=== PATIENT | male | born 1965 | race Caucasian/White ===

== ENCOUNTER 2021-12-03 11:14 | Inpatient (IN) | payer OTHER, MEDICAID, SELFPAY ==
[2021-12-03] VITALS (8 sets, daily range): BP systolic 126–158
[~2021-12-03] VITALS: Ht 177.8 cm; Wt 108.9 kg
[2021-12-03] MEDS ORDERED: IOHEXOL 350 mgI/mL, 150 ML INFUS..BTL IV ONE (11:28)
[2021-12-03 11:52] LABS: BASOPHILS % (AUTO) 0.2 % (0.0-2.0); HEMATOCRIT 40.6 % (36-54); HEMOGLOBIN 13.1 g/dL (14.0-18.0); LYMPHOCYTES # (AUTO) 0.4 K/uL (1.0-5.5); LYMPHOCYTES % (AUTO) 3.9 % (20.5-51.5); MEAN CORPUSCULAR HEMOGLOBIN 30 pg (27-31); MEAN CORPUSCULAR HGB CONC 32 % (32-36); MEAN CORPUSCULAR VOLUME 93 fL (79.0-98.0); MONOCYTES # (AUTO) 0.7 K/uL (0.0-1.0); MONOCYTES % (AUTO) 6.8 % (1.7-9.3); NEUTROPHILS # (AUTO) 9.5 K/uL (1.8-7.7); NEUTROPHILS % (AUTO) 89.1 % (40.0-70.0); PLATELET COUNT (AUTO) 108 K/uL (130-430); RED BLOOD CELL COUNT(AUTO) 4.37 MIL/uL (4.2-6.2); RED CELL DISTRIBUTION WIDTH 14.5 % (9.0-15.0); WHITE BLOOD COUNT (AUTO) 10.7 K/uL (4.8-10.8)
[2021-12-03 12:02] LABS: CALCIUM 8.4 mg/dL (8.4-11.0); CREATININE 1.19 mg/dL (0.55-1.30); POTASSIUM 4.2 mmol/L (3.5-5.1)
[2021-12-03 12:05] LABS: PROTHROMBIN TIME 10.9 SECS (9.5-12.5)
[2021-12-03 12:12] LABS: ALBUMIN 2.7 g/dL (3.4-4.8); TOTAL BILIRUBIN 0.2 mg/dL (0.0-1.0)
[2021-12-03] MEDS ORDERED: PIPERACILLIN/TAZO 3.375 GM in NS 50 ML IV ONE (13:00)
[2021-12-03] MEDS ORDERED: PIPERACILLIN/TAZOBACTAM 3.375 GM/VIAL (ZOSYN) IV ONE (13:25)
[2021-12-03] MEDS ORDERED: NACL 0.9% 1,000 ML IV ONE (13:30)
[2021-12-03 14:46] LABS: BILIRUBIN,URINE NEGATIVE (NEGATIVE); BLOOD, URINE 2+ (NEGATIVE); CLARITY/URINE SL CLOUDY (CLEAR); COLOR,URINE YELLOW (YELLOW); GLUCOSE,URINE NEGATIVE (NEGATIVE); KETONES,URINE TRACE (NEGATIVE); LEUKOCYTE ESTERASE ,URINE 1+ (NEGATIVE); NITRITE, URINE NEGATIVE (NEGATIVE); PROTEIN URINE 2+ (NEGATIVE); UROBILINOGEN,URINE 0.2 (0.2-1.0)
[2021-12-03] MEDS: ASPIRIN 81 MG TAB.CHEW PO SCH (14:51)
[2021-12-03] MEDS ORDERED: MUPIROCIN 2% TOPICAL OINTMENT 22 GM NS PRN (15:00)
[2021-12-03] MEDS ORDERED: MAGNESIUM SULFATE 50 ML IV PRN (15:00)
[2021-12-03] MEDS ORDERED: NACL 0.9% 1,000 ML IV SCH (15:00)
[2021-12-03] MEDS ORDERED: LORazepam 2 MG/ML VIAL IVP PRN (15:00)
[2021-12-03] MEDS ORDERED: POTASSIUM CHLORIDE 20 MEQ TAB.PRT.SR PO PRN (15:00)
[2021-12-03] MEDS ORDERED: NALOXONE HCL 0.4 MG/ML AMP (NARCAN) IVP PRN ×2 (15:00)
[2021-12-03] MEDS ORDERED: MORPHINE 2 MG/ML INJ. SYRINGE IVP PRN ×2 (15:00)
[2021-12-03] MEDS ORDERED: ONDANSETRON HCL 4 MG/2 ML VIAL IVP PRN (15:00)
[2021-12-03] MEDS ORDERED: DOCUSATE SODIUM 100 MG CAPSULE PO PRN (15:00)
[2021-12-03] MEDS ORDERED: ACETAMINOPHEN 325 MG TABLET PO PRN (15:00)
[2021-12-03] MEDS ORDERED: IPRATROPIUM/ALBUTEROL SULFATE 3 ML AMPUL.NEB (DUONEB) INH PRN ×2 (15:00→19:45)
[2021-12-03 15:16] LABS: BACTERIA,URINE FEW /HPF (None Seen); WBC,URINE 20-50 /HPF (0-3)
[2021-12-03 15:17] LABS: MUCUS,URINE 1+ /LPF (None Seen)
[2021-12-03 15:25] LABS: BARBITURATE, URINE NEGATIVE (NEG <=200); BENZODIAZEPINE, URINE NEGATIVE (NEG <=150); CANNABINOID, URINE NEGATIVE (NEG <=50); COCAINE, URINE NEGATIVE (NEG <=150); METHAMPHETAMINES SCREEN,URINE NEGATIVE (NEG <=500); OPIATE, URINE NEGATIVE (NEG <=100); PHENCYCLIDINE SCREEN,URINE NEGATIVE (NEG <=25); UR TRICYCLIC ANTIDEPRESSANTS POSITIVE (NEG <=300); URINE AMPHETAMINE NEGATIVE (NEG <=500); URINE METHADONE NEGATIVE (NEG <=200); URINE OXYCODONE SCREEN NEGATIVE (NEG <=100); URINE PROPOXYPHENE SCREEN NEGATIVE (NEG <=300)
[2021-12-03] MEDS ORDERED: MELA5TAB3 SL (16:29)
[2021-12-03] MEDS ORDERED: SODIUM CHLORIDE PO (16:29)
[2021-12-03] MEDS ORDERED: PRO40 PO (16:29)
[2021-12-03] MEDS ORDERED: DIA250 PO (16:29)
[2021-12-03] MEDS ORDERED: DOCU-144 PO (16:29)
[2021-12-03] MEDS ORDERED: POLY17PO4 PO (16:29)
[2021-12-03] MEDS ORDERED: INSU100V7 SUBCUT (16:29)
[2021-12-03] MEDS ORDERED: PRAV10TA PO (16:29)
[2021-12-03] MEDS ORDERED: AMOX-426 PO (16:29)
[2021-12-03] MEDS ORDERED: NEU300 PO (16:29)
[2021-12-03] MEDS ORDERED: SER100 PO (16:29)
[2021-12-03] MEDS ORDERED: BENZ1TAB76 PO (16:29)
[2021-12-03] MEDS ORDERED: LORA-259 PO (16:29)
[2021-12-03] MEDS ORDERED: DIVA250T2 PO (16:29)
[2021-12-03] MEDS ORDERED: FINA5TAB3 PO (16:29)
[2021-12-03] MEDS: D5NS 500 ML IV SCH (17:56)
[2021-12-03 18:00] LABS: CHOLESTEROL 121 mg/dL (<200); HDL CHOLESTEROL 21 mg/dL (>45); LDL CHOLESTEROL 60 mg/dL (<100); TRIGLYCERIDES 137 mg/dL (30-150)
[2021-12-03] MEDS ORDERED: BUDESONIDE 0.5 MG/2 ML AMPUL.NEB INH ONE (19:45)
[2021-12-03] MEDS ORDERED: FUROSEMIDE 40 MG/4 ML VIAL IVP ONE (19:45)
[2021-12-03] MEDS ORDERED: METHYLPREDNISOLONE SOD SUCC 40 MG/ML VIAL IVP ONE (19:45)
[2021-12-03] MEDS ORDERED: PIPERACILLIN/TAZO 3.375/DEX-IS 50 ML IV ONE (20:00)
[2021-12-04] VITALS (22 sets, daily range): BP systolic 97–153
[2021-12-04] MEDS: D5NS 500 ML IV SCH ×3 (00:39→14:25)
[2021-12-04] MEDS: PIPERACILLIN/TAZO 3.375/DEX-IS 50 ML IV SCH ×4 (06:07→17:10)
[2021-12-04 06:20] LABS: CALCIUM 8.2 mg/dL (8.4-11.0); CREATININE 0.97 mg/dL (0.55-1.30); POTASSIUM 4.3 mmol/L (3.5-5.1)
[2021-12-04 06:29] LABS: BASOPHILS % (AUTO) 0.2 % (0.0-2.0); HEMATOCRIT 38.9 % (36-54); HEMOGLOBIN 12.7 g/dL (14.0-18.0); LYMPHOCYTES # (AUTO) 0.4 K/uL (1.0-5.5); LYMPHOCYTES % (AUTO) 4.8 % (20.5-51.5); MEAN CORPUSCULAR HEMOGLOBIN 30 pg (27-31); MEAN CORPUSCULAR HGB CONC 33 % (32-36); MEAN CORPUSCULAR VOLUME 92 fL (79.0-98.0); MONOCYTES # (AUTO) 0.3 K/uL (0.0-1.0); NEUTROPHILS # (AUTO) 6.8 K/uL (1.8-7.7); PLATELET COUNT (AUTO) 136 K/uL (130-430); RED BLOOD CELL COUNT(AUTO) 4.21 MIL/uL (4.2-6.2); RED CELL DISTRIBUTION WIDTH 14.4 % (9.0-15.0); WHITE BLOOD COUNT (AUTO) 7.5 K/uL (4.8-10.8)
[2021-12-04] MEDS: INSULIN REGULAR, HUMAN 100 UNITS/ML, 10 ML VIAL (humuLIN R) SUBCUT PRN ×3 (07:05→17:23)
[2021-12-04] MEDS ORDERED: DIVA-72 PO (07:28)
[2021-12-04] MEDS ORDERED: GABAPENTIN 300 MG CAPSULE PO ONE (07:30)
[2021-12-04] MEDS: BUDESONIDE 0.5 MG/2 ML AMPUL.NEB INH SCH ×2 (08:00→21:14)
[2021-12-04] MEDS: METHYLPREDNISOLONE SOD SUCC 40 MG/ML VIAL IVP SCH ×3 (08:44→21:59)
[2021-12-04] MEDS: FINASTERIDE 5 MG TABLET (PROSCAR) PO SCH (08:45)
[2021-12-04] MEDS: ASPIRIN 81 MG TAB.CHEW PO SCH (08:45)
[2021-12-04] MEDS: QUEtiapine FUMARATE 100 MG TABLET PO SCH ×2 (08:45→22:00)
[2021-12-04] MEDS: NICOTINE 14 MG/24 HR PATCH.TD24 TD SCH (11:22)
[2021-12-04] MEDS: DIVALPROEX SODIUM 250 MG TABLET(DEPAKOTE) PO SCH ×2 (14:16→22:00)
[2021-12-04] MEDS: GABAPENTIN 300 MG CAPSULE PO SCH ×2 (14:16→22:00)
[2021-12-04] MEDS ORDERED: FUROSEMIDE 40 MG/4 ML VIAL IVP ONE (17:00)
[2021-12-04] MEDS ORDERED: PRAVASTATIN SODIUM 10 MG TABLET (PRAVACHOL) PO SCH (21:00)
[2021-12-04] MEDS: ATORVASTATIN 10 MG TABLET PO SCH (21:59)
[2021-12-05] VITALS (20 sets, daily range): BP systolic 118–142
[2021-12-05] MEDS: PIPERACILLIN/TAZO 3.375/DEX-IS 50 ML IV SCH ×4 (00:36→17:19)
[2021-12-05 06:19] LABS: BASOPHILS % (AUTO) 0.1 % (0.0-2.0); HEMATOCRIT 37.8 % (36-54); HEMOGLOBIN 12.5 g/dL (14.0-18.0); LYMPHOCYTES # (AUTO) 0.5 K/uL (1.0-5.5); LYMPHOCYTES % (AUTO) 6.2 % (20.5-51.5); MEAN CORPUSCULAR HEMOGLOBIN 31 pg (27-31); MEAN CORPUSCULAR HGB CONC 33 % (32-36); MEAN CORPUSCULAR VOLUME 92 fL (79.0-98.0); MONOCYTES # (AUTO) 0.7 K/uL (0.0-1.0); MONOCYTES % (AUTO) 8.1 % (1.7-9.3); NEUTROPHILS # (AUTO) 7.3 K/uL (1.8-7.7); NEUTROPHILS % (AUTO) 85.6 % (40.0-70.0); PLATELET COUNT (AUTO) 144 K/uL (130-430); RED CELL DISTRIBUTION WIDTH 14.4 % (9.0-15.0); WHITE BLOOD COUNT (AUTO) 8.5 K/uL (4.8-10.8)
[2021-12-05] MEDS: D5NS 500 ML IV SCH (06:23)
[2021-12-05] MEDS: GABAPENTIN 300 MG CAPSULE PO SCH ×3 (06:24→21:37)
[2021-12-05] MEDS: DIVALPROEX SODIUM 250 MG TABLET(DEPAKOTE) PO SCH ×3 (06:24→21:37)
[2021-12-05] MEDS: INSULIN REGULAR, HUMAN 100 UNITS/ML, 10 ML VIAL (humuLIN R) SUBCUT PRN ×3 (06:32→17:16)
[2021-12-05 07:29] LABS: CALCIUM 8.1 mg/dL (8.4-11.0); CREATININE 1.06 mg/dL (0.55-1.30); POTASSIUM 4.2 mmol/L (3.5-5.1)
[2021-12-05] MEDS: BUDESONIDE 0.5 MG/2 ML AMPUL.NEB INH SCH ×2 (08:01→19:30)
[2021-12-05] MEDS: QUEtiapine FUMARATE 100 MG TABLET PO SCH ×2 (08:46→21:45)
[2021-12-05] MEDS: METHYLPREDNISOLONE SOD SUCC 40 MG/ML VIAL IVP SCH ×3 (08:46→21:38)
[2021-12-05] MEDS: FINASTERIDE 5 MG TABLET (PROSCAR) PO SCH (08:46)
[2021-12-05] MEDS: ASPIRIN 81 MG TAB.CHEW PO SCH (08:46)
[2021-12-05] MEDS: ENOXAPARIN SODIUM 30 MG/0.3 ML SYRINGE SUBCUT SCH (08:47)
[2021-12-05] MEDS: NICOTINE 14 MG/24 HR PATCH.TD24 TD SCH (09:42)
[2021-12-05] MEDS: NACL 0.9% 1,000 ML IV SCH (11:03)
[2021-12-05] MEDS: ATORVASTATIN 10 MG TABLET PO SCH (21:39)
[2021-12-05] MEDS: ZOLPIDEM TARTRATE 5 MG TABLET PO PRN (21:45)
[2021-12-06] MEDS: INSULIN REGULAR, HUMAN 100 UNITS/ML, 10 ML VIAL (humuLIN R) SUBCUT PRN ×3 (00:04→17:38)
[2021-12-06] MEDS: NACL 0.9% 1,000 ML IV SCH ×2 (00:08→23:49)
[2021-12-06] MEDS: PIPERACILLIN/TAZO 3.375/DEX-IS 50 ML IV SCH ×5 (00:12→23:49)
[2021-12-06 01:42] VITALS: BP_SYST 119
[2021-12-06] MEDS: DIVALPROEX SODIUM 250 MG TABLET(DEPAKOTE) PO SCH ×3 (06:16→21:30)
[2021-12-06] MEDS: GABAPENTIN 300 MG CAPSULE PO SCH ×3 (06:16→21:30)
[2021-12-06 07:06] LABS: CHLORIDE 102 mmol/L (98-107); CREATININE 0.96 mg/dL (0.55-1.30); GLUCOSE 131 mg/dL (70-99); POTASSIUM 4.5 mmol/L (3.5-5.1); UREA NITROGEN, BLOOD 29 mg/dL (8-21)
[2021-12-06] MEDS: BUDESONIDE 0.5 MG/2 ML AMPUL.NEB INH SCH ×2 (07:33→20:17)
[2021-12-06 08:00] LABS: SODIUM SERUM 144 mmol/L (136-145)
[2021-12-06 08:01] LABS: ANION GAP < 3 (5-15); GFR AFRICAN AMERICAN 103 mL/min (>90)
[2021-12-06 08:12] LABS: HEMATOCRIT 41.3 % (36-54); HEMOGLOBIN 13.5 g/dL (14.0-18.0); MEAN CORPUSCULAR HEMOGLOBIN 30 pg (27-31); MEAN CORPUSCULAR HGB CONC 33 % (32-36); MEAN CORPUSCULAR VOLUME 93 fL (79.0-98.0); PLATELET COUNT (AUTO) 193 K/uL (130-430); RED BLOOD CELL COUNT(AUTO) 4.45 MIL/uL (4.2-6.2); RED CELL DISTRIBUTION WIDTH 14.4 % (9.0-15.0); WHITE BLOOD COUNT (AUTO) 7.6 K/uL (4.8-10.8)
[2021-12-06] MEDS: NICOTINE 14 MG/24 HR PATCH.TD24 TD SCH (09:17)
[2021-12-06] MEDS: ASPIRIN 81 MG TAB.CHEW PO SCH (09:17)
[2021-12-06] MEDS: METHYLPREDNISOLONE SOD SUCC 40 MG/ML VIAL IVP SCH (09:18)
[2021-12-06] MEDS: QUEtiapine FUMARATE 100 MG TABLET PO SCH ×2 (09:18→20:24)
[2021-12-06] MEDS: FINASTERIDE 5 MG TABLET (PROSCAR) PO SCH (09:18)
[2021-12-06] MEDS: ENOXAPARIN SODIUM 30 MG/0.3 ML SYRINGE SUBCUT SCH (09:19)
[2021-12-06 11:32] VITALS: BP_SYST 138
[2021-12-06 13:17] LABS: ATYPICAL LYMPHOCYTES % 1 % (0-0); BASOPHILS % (MANUAL) 0 % (0-2); EOSINOPHILS % (MANUAL) 0 % (0-7); LYMPHOCYTES % (MANUAL) 5 % (20-46); MONOCYTES % (MANUAL) 10 % (0-11)
[2021-12-06 16:15] VITALS: BP_SYST 131
[2021-12-06] MEDS: ATORVASTATIN 10 MG TABLET PO SCH (20:24)
[2021-12-06] MEDS: ZOLPIDEM TARTRATE 5 MG TABLET PO PRN (20:34)
[2021-12-07 01:01] VITALS: BP_SYST 135
[2021-12-07] MEDS: NACL 0.9% 1,000 ML IV SCH (04:09)
[2021-12-07] MEDS: PIPERACILLIN/TAZO 3.375/DEX-IS 50 ML IV SCH ×2 (05:12→12:20)
[2021-12-07] MEDS: GABAPENTIN 300 MG CAPSULE PO SCH ×2 (05:13→14:51)
[2021-12-07] MEDS: DIVALPROEX SODIUM 250 MG TABLET(DEPAKOTE) PO SCH ×2 (05:13→14:50)
[2021-12-07 08:00] VITALS: BP_SYST 157
[2021-12-07] MEDS: QUEtiapine FUMARATE 100 MG TABLET PO SCH (08:19)
[2021-12-07] MEDS: ASPIRIN 81 MG TAB.CHEW PO SCH (08:19)
[2021-12-07] MEDS: ENOXAPARIN SODIUM 30 MG/0.3 ML SYRINGE SUBCUT SCH (08:20)
[2021-12-07] MEDS: BUDESONIDE 0.5 MG/2 ML AMPUL.NEB INH SCH (08:21)
[2021-12-07] MEDS: NICOTINE 14 MG/24 HR PATCH.TD24 TD SCH (08:21)
[2021-12-07] MEDS: FINASTERIDE 5 MG TABLET (PROSCAR) PO SCH (08:29)
[2021-12-07] MEDS: METHYLPREDNISOLONE SOD SUCC 40 MG/ML VIAL IVP SCH (08:31)
[2021-12-07 10:39] LABS: BASOPHILS % (AUTO) 0.3 % (0.0-2.0); EOSINOPHILS % (AUTO) 0.4 % (0.0-4.0); HEMATOCRIT 41.9 % (36-54); HEMOGLOBIN 13.6 g/dL (14.0-18.0); LYMPHOCYTES # (AUTO) 0.6 K/uL (1.0-5.5); MEAN CORPUSCULAR HEMOGLOBIN 30 pg (27-31); MEAN CORPUSCULAR HGB CONC 33 % (32-36); MEAN CORPUSCULAR VOLUME 93 fL (79.0-98.0); MONOCYTES # (AUTO) 0.7 K/uL (0.0-1.0); MONOCYTES % (AUTO) 7.9 % (1.7-9.3); NEUTROPHILS # (AUTO) 7.4 K/uL (1.8-7.7); NEUTROPHILS % (AUTO) 84.4 % (40.0-70.0); PLATELET COUNT (AUTO) 193 K/uL (130-430); RED BLOOD CELL COUNT(AUTO) 4.52 MIL/uL (4.2-6.2); RED CELL DISTRIBUTION WIDTH 14.4 % (9.0-15.0); WHITE BLOOD COUNT (AUTO) 8.8 K/uL (4.8-10.8)
[2021-12-07 10:48] LABS: CALCIUM 7.8 mg/dL (8.4-11.0); CHLORIDE 100 mmol/L (98-107); CREATININE 0.73 mg/dL (0.55-1.30); GLUCOSE 154 mg/dL (70-99); SODIUM SERUM 141 mmol/L (136-145); UREA NITROGEN, BLOOD 23 mg/dL (8-21)
[2021-12-07 11:23] LABS: GFR AFRICAN AMERICAN 142 mL/min (>90)
[2021-12-07 11:28] LABS: ANION GAP < 3 (5-15)
[2021-12-07 11:32] VITALS: BP_SYST 123
[2021-12-07] MEDS: INSULIN REGULAR, HUMAN 100 UNITS/ML, 10 ML VIAL (humuLIN R) SUBCUT PRN (12:19)
[2021-12-07] MEDS ORDERED: PIPE3.379 IV (13:23)
[2021-12-07 13:41] VITALS: BP_SYST 142
[2021-12-07 15:37] VITALS: BP_SYST 128
[2021-12-07 16:00] VITALS: BP_SYST 140
== END 2021-12-07 17:35 | DRG 69 ==
LOC: SED 11:14 → STU 13:22 → SIC 16:58 → STU 12-05 18:32
PROVIDERS: ADMIT General Practice; ATTEND General Practice
PROC: 5A09357 Assistance with Respiratory Ventilation, Less than 24 Consecutive Hours, Continuous Positive Airway Pressure (ICD-10-PCS; principal; 2021-12-03)
PROC: 5A09357 Assistance with Respiratory Ventilation, Less than 24 Consecutive Hours, Continuous Positive Airway Pressure (ICD-10-PCS; 2021-12-05)
DX: G45.9 Transient cerebral ischemic attack, unspecified (principal); J69.0 Pneumonitis due to inhalation of food and vomit; J96.01 Acute respiratory failure with hypoxia; J96.02 Acute respiratory failure with hypercapnia; J44.0 Chronic obstructive pulmonary disease with (acute) lower respiratory infection; J44.1 Chronic obstructive pulmonary disease with (acute) exacerbation; N39.0 Urinary tract infection, site not specified; I69.351 Hemiplegia and hemiparesis following cerebral infarction affecting right dominant side; I10 Essential (primary) hypertension; E78.5 Hyperlipidemia, unspecified; F17.210 Nicotine dependence, cigarettes, uncomplicated; G90.8 Other disorders of autonomic nervous system; F99 Mental disorder, not otherwise specified; R13.10 Dysphagia, unspecified; Z20.822 Contact with and (suspected) exposure to COVID-19; E11.43 Type 2 diabetes mellitus with diabetic autonomic (poly)neuropathy
CPT/HCPCS: 36415; 36600; 70450-TC; 70496; 70498; 71045; 76376; 80048; 80053; 80061; 80164; 80307; 81000; 82803-TC; 82962; 83036; 83605; 83735; 84484; 85007; 85025; 85027; 85610-TC; 85730-TC; 86886; 86900; 86901; 87040; 87086; 92610-GN; 94640; 94660; 94760; 96374; 99291; J1030; J1650; J1815; J1940; J2405; J2543; J7626; Q9967